=== PATIENT | male | born 1945 | race Caucasian/White ===

== ENCOUNTER 2017-07-29 14:05 | Emergency (ER) | payer MEDICARE, OTHER ==
[~2017-07-29] VITALS: Ht 182.9 cm; Wt 90.7 kg
[2017-07-29] MEDS ORDERED: CEFAZOLIN SOD 1 GM in WATER STERILE 10ML VIAL 10 ML IV SCH (14:30)
[2017-07-29] MEDS ORDERED: CLINDAMYCIN 300MG 50 ML IV ONE (15:30)
== END 2017-07-29 16:38 | disposition home or self-care (01) ==
LOC: FSED 14:05
DX: S91.112A Laceration without foreign body of left great toe without damage to nail, initial encounter (principal); S96.122A Laceration of muscle and tendon of long extensor muscle of toe at ankle and foot level, left foot, initial encounter; W45.8XXA Other foreign body or object entering through skin, initial encounter; Y93.89 Activity, other specified; Y92.008 Other place in unspecified non-institutional (private) residence as the place of occurrence of the external cause
CPT/HCPCS: 80053; 85025; 96365; 99284

== ENCOUNTER 2017-08-05 14:22 | Emergency (ER) | payer MEDICARE, OTHER ==
[~2017-08-05] VITALS: Ht 182.9 cm; Wt 90.7 kg
== END 2017-08-05 14:50 | disposition home or self-care (01) ==
LOC: FSED 14:22
DX: Z48.01 Encounter for change or removal of surgical wound dressing (principal); L03.031 Cellulitis of right toe
CPT/HCPCS: 99283

== ENCOUNTER 2017-08-10 13:17 | Emergency (ER) | payer MEDICARE, OTHER ==
[~2017-08-10] VITALS: Ht 182.9 cm; Wt 90.7 kg
[2017-08-10 13:58] VITALS: BP 144/88
== END 2017-08-10 14:03 | disposition home or self-care (01) ==
LOC: FSED 13:17
DX: Z48.02 Encounter for removal of sutures (principal); L03.032 Cellulitis of left toe
CPT/HCPCS: 99283